=== PATIENT | male | born 1960 | race Caucasian/White ===

== ENCOUNTER 2023-04-04 09:33 | Outpatient (CLI) | payer BC ==
[2023-04-04] MEDS ORDERED: CYSTOGRAFIN 300 ML INFUS..BTL UR ONE (09:55)
== END 2023-04-04 20:37 | disposition home or self-care (01) ==
LOC: SRD 09:33
PROVIDERS: ATTEND Urology Pediatric Urology
DX: C61 Malignant neoplasm of prostate (principal)
CPT/HCPCS: 74430; 51600; Q9958